=== PATIENT | female | born 1960 | race Two or more races ===

== ENCOUNTER 2018-01-11 10:05 | Day surgery (SDC) | payer OTHER ==
[2018-01-11] VITALS (13 sets, daily range): BP systolic 117–154; BP diastolic 70–98
[~2018-01-11] VITALS: Ht 149.9 cm; Wt 81.6 kg
[~2018-01-11 10:05] MED LIST: Midazolam 2mg/2ml Inj ONE; Propofol 200mg/20ml IV ONE
--- NOTE | 2018-01-11 10:21 | Short Stay Surgery H&P ---
History of Present Illness History of Present Illness Chief Complaint Abdominal and acid reflux HPI Carlota Kahn is a 57 year old female who was admitted on for GERD Patient History Past Surgeries: (1) H/O shoulder surgery (2) H/O hand surgery Review of Systems Cardiovascular: Reports: no symptoms Respiratory: Reports: no symptoms Skeletal: Reports: trauma Gastrointestinal: Reports: gastro esophageal reflux disease Genitourinary: Reports: no symptoms Neurologic: Reports: no symptoms Endocrine: Reports: no symptoms Hematologic: Reports: no symptoms Physical Exam Skin: normal HENT: normal Heart: normal Lungs: normal Abdomen: abnormal Extremities: normal Genitourinary: normal Plan Plan of Care Upper GI endoscopy and biopsy Preop Interventions None. Summary of Findings See the reports Attestation Are the patient's medical conditions optimized for surgery? Attestation Response: yes Hilario Barker MD Jan 11, 2018 10:21
--- NOTE | 2018-01-11 10:22 | Pre-Procedure Note/Attestation ---
Pre-Procedure Note/Attestation Complete Prior to Procedure Planned Procedure: left Procedure Narrative: Examination of the upper GI tract via endoscopy Indications for Procedure Pre-Operative Diagnosis: R/O Peptic Ulcer/Esophagitis/Gastritis Attestation I attest that I discussed the nature of the procedure; its benefits; risks and complications; and alternatives (and the risks and benefits of such alternatives ), prior to the procedure, with the patient (or the patient's legal passenger representative). I attest that, if there was a reasonable possibility of needing a blood transfusion, the patient (or the patient's legal passenger representative) was given the [facility] standardized written summary, pursuant to the Jero Sumner Blood Safety Act ([place] Health and Safety Code # 1645, as amended). I attest that I re-evaluated the patient just prior to the surgery and that there has been no change in the patient's H&P, except as documented below: Hilario Barker MD Jan 11, 2018 10:22
[2018-01-11] MEDS ORDERED: LR 1000ml ONE (11:13)
--- NOTE | 2018-01-11 11:28 | Anethesia Preoperative Eval ---
Anesthesia Pre-op PMH/ROS General Date of Evaluation: Jan 11, 2018 Anesthesiologist: ASA Score: ASA 2 Mallampati Score Class I : Soft palate, uvula, fauces, pillars visible Class II: Soft palate, uvula, fauces visible Class III: Soft palate, base of uvula visible Class IV: Only hard plate visible Mallampati Classification: Class III Surgeon: jyoti Diagnosis: gerd Surgical Procedure: egd Allergies: Coded Allergies: MORPHINE (Verified Adverse Reaction, Severe, Headache , 01/11/18) Past Medical History Cardiovascular: Denies: HTN, CAD, MS, valve dz, arrhythmia, other Pulmonary: Denies: asthma, COPD, SOILA, other Gastrointestinal/Genitourinary: Reports: GERD Neurologic/Psychiatric: Denies: dementia, CVA, depression/anxiety, TIA, other Endocrine: Denies: DM, hypothyroidism, steroids, other HEENT: Denies: cataract (L), cataract (R), glaucoma, NISQUALLY (L), NISQUALLY (R), other Hematology/Immune: Denies: anemia, DVT, bleeding disorder, other Musculoskeletal/Integumentary: Denies: OA, RA, DJD, DDD, edema, other Other: obesity PSxH Narrative: shoulder surgery Anesthesia Pre-op Phys. Exam Physician Exam Constitutional: NAD Cardiovascular: RRR Respiratory: CTA Gastrointestinal: S/NT/ND Airway Exam Mallampati Score: Class II MO: full ROM: full Teeth: missing Dentures: upper Anesthesia Pre-op A/P Risk Assessment & Plan Assessment: asa 2 Plan: mac Status Change Before Surgery: No Pre-Antibiotics Drug: none Park Sin M.D. Jan 11, 2018 11:28
[2018-01-11] MEDS ORDERED: CELEBREX100 MG ORAL (11:44)
[2018-01-11] MEDS ORDERED: OMEPRAZOLE40 M1 ORAL (11:44)
--- NOTE | 2018-01-11 12:05 | Endoscopy Procedure Note ---
Endoscopy Procedure Note General Indication for Procedure: Abdominal pain/GERDs/dysphagia Procedures Performed: EGD - Mild gastritis, otherwise completely normal Upper GI. Endoscopy. Biopsies taken per joe from gastric body and prepyloric areas. Specimen: yes Pt Tolerated Procedure Well: Yes Estimated Blood Loss: none Anesthesia Anesthesiologist: Dr. Sin Anesthesia: moderate sedation Medications Medication Given: see anesthesia record Inserted Devices Implant(s) used?: No Quality Quality of Bowel Preparation: Excellent Was there any complications?: No GI Core Measures 50 yrs or older w/o bx or poly: Not Applicable 10yrs. F/U not recommended: Not Applicable If not recommended, why?: Med reason:<3 yrs.: System Reason:<3 yrs.: Hilario Barker MD Jan 11, 2018 12:05
--- NOTE | 2018-01-11 12:05 | Discharge Instructions ---
Discharge Instructions Discharge Instructions Follow up with: Visit the doctor after 2 weeks in the office For Congestive Heart Failure Reminder Report to your physician any weight gain of 5 pounds or more in one week. Hilario Barker MD Jan 11, 2018 12:05
[2018-01-11] MEDS ORDERED: LR 1000ml 1,000 ML IVLG SCH (12:10)
[2018-01-11] MEDS ORDERED: fentaNYL 100 mcg/2 mL IV PRN (12:15)
[2018-01-11] MEDS ORDERED: DiphenhydrAMINE 50mg/ml Inj IVP PRN (12:15)
--- NOTE | 2018-01-11 12:17 | Immediate Post-Op Evaluation ---
Immediate Post-Op Evalulation Immediate Post-Op Evalulation Procedure: egd Date of Evaluation: Jan 11, 2018 Time of Evaluation: 12:17 IV Fluids: LR 200ml Blood Products: 0 Estimated Blood Loss: 0 Urinary Output: 0 Blood Pressure Systolic: 122 Blood Pressure Diastolic: 72 Pulse Rate: 71 Respiratory Rate: 16 O2 Sat by Pulse Oximetry: 100 Temperature (Fahrenheit): 97.2 Pain Score (1-10): 0 Nausea: No Vomiting: No Complications none Patient Status: awake, patent, none Hydration Status: adequate Drug: none Park Sin M.D. Jan 11, 2018 12:17
--- NOTE | 2018-01-11 12:29 | 48 Hour Post Anesthesia Eval ---
Post Anesthesia Evaluation Procedure: egd Date of Evaluation: Jan 11, 2018 Time of Evaluation: 12:45 Blood Pressure Systolic: 124 0: 71 Pulse Rate: 71 Respiratory Rate: 15 Temperature (Fahrenheit): 97.2 O2 Sat by Pulse Oximetry: 97 Airway: patent Nausea: No Vomiting: No Pain Intensity: 0 Hydration Status: adequate Mental Status/LOC: patient returned to baseline Post-Anesthesia Complications: none Follow-up care needed: ready to discharge Park Sin M.D. Jan 11, 2018 12:28
--- NOTE | 2018-01-11 20:00 | Pre-op HX & Phy Repo 2 SIG ---
DATE OF ADMISSION: 01/11/2018 HISTORY OF PRESENT ILLNESS: The applicant is a 57-year-old , [id number] female, who is being seen prior to undergoing the procedure for upper GI endoscopy for which she has been scheduled to receive for evaluation of gastrointestinal complaints and symptoms that she has suffered subsequent to her work injury. The applicant was seen earlier in my office, having been referred for evaluation of her gastrointestinal conditions. At the time, the patient had been complaining of experiencing pain over the upper part of the abdomen and particularly over the epigastric area. She reported that she never had this condition before until the time that when she got injured at job site approximately 10 years ago. She reports that she has had the injuries over her right shoulder and subsequent to that, she was started on a number of medications including nonsteroidal anti-inflammatory agents, NSAIDs, and narcotics. She also received surgeries for the injury over shoulder area as well. 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 Currently, she reports that her symptoms on a daily basis are coming intermittently and almost the pain lasts half hour or so. She also reports that she has never had any major dysphagia, odynophagia, rectal bleeding, or nausea, etc, but she reports that she has gained approximately 30 to 40 pounds subsequent to her injury at work. It is important to mention that she reports that she had received an upper GI endoscopy in the past, but we have not received any result on the records. PAST MEDICAL HISTORY: Basically, none significant. There is no history of hypertension, hyperlipidemia, arthritis, etc. SURGICAL HISTORY: Right shoulder and both hand surgeries. CURRENT MEDICATIONS: Celebrex and some pain medications. ALLERGIES: None significant. FAMILY HISTORY: None significant. HABITS: The applicant does not smoke cigarettes and does not use illicit drugs and occasionally drinks some beer. REVIEW OF SYSTEMS: Basically, history of present illness. PHYSICAL EXAMINATION: GENERAL: Reveals alert and well-oriented female, does not seem to be in acute distress. She looks overweight and obese. Answers the questions quite properly. VITAL SIGNS: All stable. HEENT: Normocephalic. Pupils equal in size and reactive to light and accommodation. No visible jaundice. NECK: Supple. No JVD, thyromegaly, or adenopathy. CHEST: Clear to auscultation and percussion. No rales or rhonchi. HEART: S1 and S2 normal. Regular rhythm. No gallops or murmur. ABDOMEN: Soft, but there are areas of tenderness over the epigastric and upper part of the abdomen on simple palpation. There is no organomegaly or masses noted. EXTREMITIES: Unremarkable. PRELIMINARY IMPRESSION: 1. Abdominal pain, epigastric pain of uncertain etiology, rule out NSAID-induced gastropathy, peptic ulcer disease, esophagitis, gastritis, duodenal ulcer, and gastric ulcer. 2. History of dysphagia secondary to possible esophageal spasm caused by gastroesophageal reflux, rule out NSAID-induced esophagitis. 3. History of bodily injury, work-related. RECOMMENDATION: The applicant seems to be stable at this time to undergo the procedure of upper GI endoscopy as I spoke with her personally now at this time before going into the operating room. She accepts the risks and benefits and will sign the consent. Said Imani Barker DR: JAQUELIN JOB#: [id number] CC:
--- NOTE | 2018-01-11 22:30 | Procedure Note ---
DATE OF PROCEDURE: 01/11/2018 SURGEON: Hilario Barker M.D. PROCEDURE: Esophagogastroduodenoscopy with biopsy. PREOPERATIVE DIAGNOSIS: Abdominal pain, dysphagia, and history of gastroesophageal reflux. POSTOPERATIVE DIAGNOSIS: Mild generalized gastritis. Biopsy was taken per random from gastric body and prepyloric area. MEDICATION USED: Per Dr. Sin, anesthesiologist. INSTRUMENT: GIF Olympus upper GI video endoscope. DESCRIPTION OF PROCEDURE: The patient after arriving endoscopy unit, was told about risks and benefits of the procedure which she accepted and signed informed consent. At this time, she was put in the left lateral decubitus position. After adequate IV sedation, the scope was gently passed through the cricopharyngeal area and was lodged in the upper esophagus. The scope was gradually advanced towards gastroesophageal junction. The entire length of the esophagus looked normal. No evidence of inflammatory process, ulceration, stricture, etc. was found. GE junction also looked normal without any evidence of hiatal hernia or Infante's. At this time, the scope was advanced into the stomach, gastric cavity was distended with insufflation of air, gradually the fundus and the body and the antrum were examined. There was areas of mild erythema of minimal degree, particularly in the pre-pyloric area. There was one biopsy taken from the gastric body and another one from the antral pre-pyloric area and subsequently the scope was passed through the pylorus. First and second portion of duodenum were found to be completely normal. At this time, the scope was pulled back into the stomach and retroflexion maneuver was applied and examination of the GE junction in a closer fashion did not reveal any other abnormalities except what is stated earlier. Finally, procedure was terminated. The patient tolerated the procedure well and left the endoscopy room in a good condition. Hilario Barker M.D. DR: Marlon JOB#: [id number] CC:
== END 2018-01-11 13:40 | disposition home or self-care (01) ==
LOC: GAS 10:05
DX: K29.50 Unspecified chronic gastritis without bleeding (principal); K21.9 Gastro-esophageal reflux disease without esophagitis; E66.9 Obesity, unspecified; Z88.5 Allergy status to narcotic agent
CPT/HCPCS: 43239; J2250; J2704; J7120; 94003; 94150